=== PATIENT | male | born 1955 | race Caucasian/White ===

== ENCOUNTER 2017-01-26 10:10 | Emergency (ER) | payer BC ==
--- NOTE | ~2017-01-26 | ER ---
PATIENT'S NAME: BELIA [facility]LINE [facility] AGE: 61 Y [address] ROOM: [place] [id number] LOCATION: [facility] ADMIT DATE: 01/26/2017 ER/Outpatient Report DISCHARGE DATE: 01/26/2017 FAMILY PHYSICIAN: Tony Neely MD ATTENDING PHYSICIAN: Carol Antunez Time of Arrival: 1038 hours. Time of Evaluation: 1040 hours. IDENTIFICATION: A 61-year-old male. CHIEF COMPLAINT: Back pain. HISTORY OF PRESENT ILLNESS: The patient has pain across his lower back, right more than left, associated with nausea. It started at 2125 hours. Yesterday, last bowel movement was slightly constipated. No blood in his stools. No dark, tarry, or black stools. No fever or chills. The patient has had kidney stones before, and he thought this may be felt similar. He went to see Dr. Neely, who sent him here to the ER. ALLERGIES: MORPHINE CAUSES HIVES. CURRENT MEDICATIONS: Denies. MEDICAL PROBLEMS: History of kidney stones, ruptured disk, L5. PRIOR SURGERY: Appendectomy. SOCIAL HISTORY: The patient lives in [place]. He is a self-employed martin and rancher. Tobacco use, denies. Alcohol use, denies. Drug use, denies. REVIEW OF SYSTEMS: All systems reviewed and negative other than what is noted in the HPI. PHYSICAL EXAMINATION: VITAL SIGNS: Weight 90.6 kg, pulse 65, respirations 20, temperature 97.6, sats 95% on room air. PATIENT'S NAME: RAISA [facility] AGE: 61 Y [address] ROOM: [place] [address] LOCATION: [facility] ADMIT DATE: 01/26/2017 ER/Outpatient Report DISCHARGE DATE: 01/26/2017 FAMILY PHYSICIAN: Tony Neely MD ATTENDING PHYSICIAN: Carol Antunez GENERAL: A 61-year-old male, in no acute distress. HEENT: Head: Normocephalic, atraumatic. Ears: TMs translucent both ears. Eyes: Pupils are equal and reactive to light and accommodation. Extraocular movements intact. Nose: Mucosa pink. No lesions. Mouth: No lesions. Pharynx benign. NECK: Supple. No lymphadenopathy. LUNGS: Clear to auscultation. HEART: Regular rate and rhythm. ABDOMEN: Soft, nondistended, nontender. SKIN: Lorenzo, warm, and dry. No lesions or rashes noted. He does have slight right-sided CVA tenderness. NEURO: No focal deficit. No lower extremity edema. No calf tenderness. LABORATORY DATA AND X-RAYS: CT scan stone protocol, no acute findings. Tiny nonobstructive intrarenal stone on the left. UA is negative. Sodium 142, potassium 4.0, chloride 108, CO2 of 25, BUN 14, creatinine 1.2, blood sugar 94. Liver enzymes normal. Hemoglobin 15.9, hematocrit 45.4, platelets 221, white count 5.4 with a normal differential. IMPRESSION AND PLAN: 1. Musculoskeletal low back pain. 2. Constipation. PLAN: Constipation handout. Ice or heat. No heavy lifting, Naproxen 500 mg b.i.d. with food or ibuprofen but not both. Strain urine. The patient did not want any pain medication to go home with. Zofran 4 mg 1 p.o. q.6 hours p.r.n. nausea, dispensed 10 with 0 refills. Stool softener, fluids, and fiber, and follow up with Dr. Neely in 1 to 5 days. Follow up sooner if any problems or concerns. The patient understands and agrees, and all questions have been answered. CAROL ANTUNEZ MD CAR/modl /[id number] d: 01/26/171928 t: 01/28/17 1432, OUTPATIENT REPORT
[2017-01-26 11:01] LABS: BASOPHIL % 0.2 %; EOSINOPHIL # 0.1 K/uL (0.0-0.5); EOSINOPHIL % 1.3 %; HEMATOCRIT 45.4 % (37.0-53.0); HEMOGLOBIN 15.9 g/dL (11.0-16.0); IMMATURE GRANULOCYTE % 0.2 %; LYMPHOCYTE # 2.2 K/uL (0.8-4.0); LYMPHOCYTE % 41.4 %; MCH 29.8 pg (27.0-34.0); MCV 85.2 fl (83.0-98.0); MONOCYTE # 0.6 K/uL (0.0-1.0); MONOCYTE % 11.4 %; MPV 10.2 fl (9.4-12.4); NEUTROPHIL # (ANC) 2.4 K/uL (1.4-9.0); NEUTROPHIL % 45.5 %; NRBC % 0 /100WBC (0-0.00); PLATELET COUNT 221 K/uL (150-450); RBC 5.33 M/uL (3.50-5.50); RDW-CV 12.3 % (11.9-14.6); WBC 5.4 K/uL (4.0-11.0)
[2017-01-26 11:17] LABS: ALBUMIN 3.8 gm/dL (3.5-5.0); ALK PHOS 65 IU/L (33-138); ALT 41 IU/L (12-78); AST 27 IU/L (10-40); BLOOD UREA NITROGEN 14 mg/dL (6-24); CALCIUM 8.9 mg/dL (8.5-10.5); CHLORIDE 108 mMol/L (96-110); CO2 25 mMol/L (22-32); CREATININE 1.2 mg/dL (0.6-1.3); ESTIMATED GFR (MDRD EQUATION) > 60; SODIUM 142 mMol/L (135-145); TOTAL BILIRUBIN 0.5 mg/dL (0.0-1.5); TOTAL PROTEIN 7.9 g/dL (6.0-8.4)
[2017-01-26 11:34] LABS: BILIRUBIN URINE NEGATIVE (NEGATIVE); BLOOD URINE NEGATIVE /UL (NEGATIVE); COLOR URINE YELLOW (YELLOW); GLUCOSE URINE NEGATIVE (NEGATIVE); KETONE URINE NEGATIVE (NEGATIVE); LEUKOCYTES URINE NEGATIVE /UL (NEGATIVE); NITRITE URINE NEGATIVE (NEGATIVE); PROTEIN URINE NEGATIVE (NEGATIVE); TURBIDITY URINE CLEAR (CLEAR); UROBILINOGEN URINE NORMAL (NORMAL)
== END 2017-01-26 12:10 | disposition disaster alternative care site (69) ==
LOC: GMED 10:10
PROVIDERS: Family Medicine
DX: M54.5 Low back pain (principal); K59.00 Constipation, unspecified; Z88.8 Allergy status to other drugs, medicaments and biological substances; Z90.49 Acquired absence of other specified parts of digestive tract
CPT/HCPCS: J1885